=== PATIENT | female | born 2000 | race Two or more races ===

== ENCOUNTER → 2020-02-06 | Outpatient (CLI) | payer OTHER ==
--- NOTE | 2020-02-06 16:53 | RAD ---
EXAM: Bilateral knees, standing view; left knee, 2 views. HISTORY: Pain. COMPARISON: None. FINDINGS: A standing view both knees and 2 views of the left knee are obtained. There is no fracture, dislocation or subluxation. There is trace joint fluid without a significant effusion. There is an incidental bone island within the left medial femoral condyle. IMPRESSION: No acute osseous finding. Electronically signed by: Shanae Garland MD (02/06/2020 4:50 PM) [id number]
== END | disposition home or self-care (01) ==
LOC: DXRAD 16:02
PROVIDERS: ATTEND Orthopaedic Surgery
DX: M25.562 Pain in left knee (principal)
CPT/HCPCS: 73560; 73565